=== PATIENT | male | born 1970 | race Hispanic/Latino ===

== ENCOUNTER 2017-11-18 08:39 | Emergency (ER) | payer SELFPAY ==
[2017-11-18 09:05] LABS: Urine Drugs of Abuse Note Disclamer
[2017-11-18 09:14] LABS: Basophils % (Auto) 0.5 % (0.0-1.8); Eosinophils % (Auto) 3.1 % (0.0-4.3); Hematocrit 49.2 % (35.5-45.6); Hemoglobin 16.2 gm/dl (11.8-15.2); Mean Corpuscular HGB Conc 33 % (32-34); Mean Corpuscular Hemoglobin 31 pg (28-32); Mean Corpuscular Volume 93 fl (84-94); Platelet Count 241 K/mm3 (140-440); Red Blood Count 5.28 M/mm3 (3.65-5.03); Red Cell Distribution Width 13.4 % (13.2-15.2); White Blood Count 6.5 K/mm3 (4.5-11.0)
[2017-11-18 09:15] LABS: Bilirubin,Urine NEG (Negative); Blood,Urine NEG (Negative); Ketones,Urine NEG (Negative); Leukocyte Esterase,Urine NEG (Negative); Mucus,Urine FEW /HPF; Nitrite,Urine NEG (Negative); Protein,Urine <15 mg/dL mg/dL (Negative)
[2017-11-18 09:28] LABS: Calcium 9.9 mg/dL (8.4-10.2); Chloride 101.6 mmol/L (98-107); Potassium 4.8 mmol/L (3.6-5.0)
[2017-11-18] MEDS ORDERED: ZOFRAN ONE (09:32)
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
[2017-11-18] MEDS ORDERED: BENADRYL IM PRN (19:20)
[2017-11-19] MEDS: ATIVAN IM PRN ×2 (03:07→21:00)
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
[2017-11-19] MEDS ORDERED: HABITROL TD ONE (18:00)
[2017-11-19] MEDS ORDERED: REMERON PO SCH (22:00)
[2017-11-20 01:00] VITALS: BP 126/60
== END 2017-11-20 06:03 ==
LOC: ED 08:39 → EEVIPCON 08:39 → ED 11-20 06:03
DX: T14.91XA Suicide attempt, initial encounter (principal); F14.10 Cocaine abuse, uncomplicated; F17.200 Nicotine dependence, unspecified, uncomplicated; X79.XXXA Intentional self-harm by blunt object, initial encounter; Y93.89 Activity, other specified; Y92.89 Other specified places as the place of occurrence of the external cause; Y99.8 Other external cause status
CPT/HCPCS: 36415; 80048; 80307; 81001; 85025; 96372; 99285; G0480; J1200; J2060; 80320; J2405